=== PATIENT | female | born 1955 | race Caucasian/White ===

== ENCOUNTER 2017-09-17 04:41 | Emergency (ER) | payer OTHER ==
[~2017-09-17] VITALS: Ht 157.5 cm; Wt 80.0 kg
[2017-09-17 04:42] VITALS: BP 180/86; PULSE 68; RESP 16; TEMP 97.9; O2SAT 98
[2017-09-17] MEDS ORDERED: PANTOPRAZOLE SODIUM 40 MG VIAL IV PUSH ONE (05:30)
[2017-09-17] MEDS ORDERED: SODIUM CHLOR 0.9% 1000 ML INJ 1,000 ML IV ONE (05:30)
[2017-09-17] MEDS: ONDANSETRON HCL 4 MG/2 ML VIAL IV PUSH ONE ×2 (06:45→06:55)
[2017-09-17 06:56] LABS: ALT (GPT) 33 U/L (10-53); ANION GAP 9 MEQ/L (5-15); AST (GOT) 26 U/L (15-37); BICARBONATE 27.3 MEQ/L (21.0-32.0); BLOOD UREA NITROGEN 13 MG/DL (7-18); CHLORIDE 105 MEQ/L (98-107); GLOMERULAR FILTRATION RATE 70 ML/MIN (>89); POTASSIUM 3.4 MEQ/L (3.5-5.1); SODIUM (NA) 141 MEQ/L (136-145)
[2017-09-17 07:00] LABS: ALKALINE PHOSPHATASE 91 U/L (45-117); TOTAL BILIRUBIN ADULT 0.5 MG/DL (0.2-1.0)
[2017-09-17 07:01] VITALS: BP 128/73; PULSE 60; RESP 20; O2SAT 99
[2017-09-17 07:12] LABS: AUTOMATED NEUTROPHIL # 4.3 TH/MM3 (1.8-7.7); BASOPHIL # 0.1 TH/MM3 (0-0.2); BASOPHIL % 0.9 % (0.0-2.0); EOSINOPHIL # 0.1 TH/MM3 (0-0.4); EOSINOPHIL % 1.8 % (0.0-4.0); HEMATOCRIT 44.8 % (35.0-46.0); HEMO FLAGS DIFF FINAL; LYMPH % 17.3 % (9.0-44.0); MEAN CORPUSCULAR HEMOGLOBIN 31.4 PG (27.0-34.0); MEAN CORPUSCULAR HGB CONC 34.9 % (32.0-36.0); MONO % 7.6 % (0.0-8.0); NEUT % 72.4 % (16.0-70.0); PLATELET COUNT 159 TH/MM3 (150-450); RED BLOOD COUNT 4.97 MIL/MM3 (4.00-5.30); RED CELL DISTRIBUTION WIDTH 12.8 % (11.6-17.2); WHITE BLOOD COUNT 5.9 TH/MM3 (4.0-11.0)
--- NOTE | 2017-09-17 07:24 | PD ---
HPI Chief Complaint: Chest Pain Time Seen by Provider: 05:03 Travel History International Travel<30 days: No Contact w/Intl Traveler<30days: No Traveled to known affect area: No History of Present Illness HPI Patient is a 62-year-old female who is coming in with substernal epigastric pain started tonight Just [employer] while lying in bed . she was worried it could be cardiac in nature. She has no diabetes. No hypertension. No past medical history significant. Her mother's brother had a heart attack at the age of 49. Patient has never had a stress test . patient did not take anything for the pain. Patient did not try Tums or any antacid or aspirin. In the ER she looks comfortable lying there with a vague substernal epigastric pain. it does not radiate. PFSH Past Medical History Cancer: Yes (skin) Cardiovascular Problems: No Diabetes: No Endocrine: No Gastrointestinal Disorders: Yes (IBS) Genitourinary: No Hepatitis: No Hiatal Hernia: No Immune Disorder: No Musculoskeletal: No Neurologic: No Psychiatric: No Reproductive: No Respiratory: Yes (hx of sleep apnea) Thyroid Disease: No Past Surgical History Abdominal Surgery: Yes (INTESTINAL BLOCKAGE) AICD: No Cardiac Surgery: No Ear Surgery: No Endocrine Surgery: No Eye Surgery: No Genitourinary Surgery: Yes (hysterectomy) Gynecologic Surgery: Yes (c section) Joint Replacement: No Oral Surgery: Yes (T & A) Pacemaker: No Thoracic Surgery: No Tonsillectomy: Yes Other Surgery: Yes Social History Alcohol Use: Yes (RARE) Tobacco Use: No Substance Use: No Allergies-Medications (Allergen,Severity, Reaction): Coded Allergies: No Known Allergies (Unverified Adverse Reaction, Unknown, 09/17/17) Reported Meds & Prescriptions Reported Meds & Active Scripts Active Protonix (Pantoprazole Sodium) 40 Mg Tab 40 Mg PO DAILY Pepcid (Famotidine) 20 Mg Tab 20 Mg PO BID Review of Systems Except as stated in HPI: all other systems reviewed are Neg Cardiovascular: Positive: Chest Pain or Discomfort Gastrointestinal: Positive: Abdominal Pain Physical Exam Narrative GENERAL: SKIN: Warm and dry. HEAD: Atraumatic. Normocephalic. EYES: Pupils equal and round. No scleral icterus. No injection or drainage. ENT: No nasal bleeding or discharge. Mucous membranes pink and moist. NECK: Trachea midline. No JVD. CARDIOVASCULAR: Regular rate and rhythm. RESPIRATORY: No accessory muscle use. Clear to auscultation. Breath sounds equal bilaterally. GASTROINTESTINAL: Abdomen soft, + Epigastric-tender, nondistended. Hepatic and splenic margins not palpable. Reproducible pain with palpation of the epigastrium MUSCULOSKELETAL: Extremities without clubbing, cyanosis, or edema. No obvious deformities. NEUROLOGICAL: Awake and alert. No obvious cranial nerve deficits. Motor grossly within normal limits. Five out of 5 muscle strength in the arms and legs. Normal speech. PSYCHIATRIC: Appropriate mood and affect; insight and judgment normal. Data Data Last Documented VS Vital Signs Date Time Temp Pulse Resp B/P (MAP) Pulse Ox O2 Delivery O2 Flow Rate FiO2 09/17/17 07:47 09/17/17 07:01 60 20 99 Room Air 09/17/17 04:42 97.9 Orders Orders Pantoprazole Inj (Protonix Inj) (09/17/17 05:30) Ondansetron Inj (Zofran Inj) (09/17/17 05:30) Sodium Chlor 0.9% 1000 Ml Inj (Ns 1000 M (09/17/17 05:30) Complete Blood Count With Diff (09/17/17 05:40) Troponin I (09/17/17 05:40) Comprehensive Metabolic Panel (09/17/17 05:40) Lipase (09/17/17 05:40) Ed Discharge Order (09/17/17 07:24) Electrocardiogram (09/17/17 05:08) Labs Laboratory Tests Test 09/17/17 05:00 White Blood Count 5.9 TH/MM3 Red Blood Count 4.97 MIL/MM3 Hemoglobin 15.6 GM/DL Hematocrit 44.8 % Mean Corpuscular Volume 90.0 FL Mean Corpuscular Hemoglobin 31.4 PG Mean Corpuscular Hemoglobin Concent 34.9 % Red Cell Distribution Width 12.8 % Platelet Count 159 TH/MM3 Mean Platelet Volume 8.5 FL Neutrophils (%) (Auto) 72.4 % Lymphocytes (%) (Auto) 17.3 % Monocytes (%) (Auto) 7.6 % Eosinophils (%) (Auto) 1.8 % Basophils (%) (Auto) 0.9 % Neutrophils # (Auto) 4.3 TH/MM3 Lymphocytes # (Auto) 1.0 TH/MM3 Monocytes # (Auto) 0.4 TH/MM3 Eosinophils # (Auto) 0.1 TH/MM3 Basophils # (Auto) 0.1 TH/MM3 CBC Comment DIFF FINAL Differential Comment Blood Urea Nitrogen 13 MG/DL Creatinine 0.82 MG/DL Random Glucose 81 MG/DL Total Protein 7.6 GM/DL Albumin 4.1 GM/DL Calcium Level 9.5 MG/DL Alkaline Phosphatase 91 U/L Aspartate Amino Transf (AST/SGOT) 26 U/L Alanine Aminotransferase (ALT/SGPT) 33 U/L Total Bilirubin 0.5 MG/DL Sodium Level 141 MEQ/L Potassium Level 3.4 MEQ/L Chloride Level 105 MEQ/L Carbon Dioxide Level 27.3 MEQ/L Anion Gap 9 MEQ/L Estimat Glomerular Filtration Rate 70 ML/MIN Troponin I LESS THAN 0.02 NG/ML Lipase 228 U/L [facility] Medical Decision Making Medical Screen Exam Complete: Yes Emergency Medical Condition: Yes Differential Diagnosis GERD vs Cardiac ischemia, vs pulmonary , vs viral gastritis Narrative Course pt has complete relief of symptoms from Protonix and Zofran, feels a distinctive change , after meds , ekg NSR and Trop completely negative. I offer the option of staying for a repeat troponin and EKG 4 hrs from first or to follow up with her MD tomorrow for repeat labs and arrange an outpt stress test due to age and remote family Hx . pt agrees to follow up as she feels better and agrees with my working diagnosis of GERD Diagnosis Primary Impression: GERD (gastroesophageal reflux disease) Patient Instructions: Gastritis (ED), General Instructions Scripts Pantoprazole (Protonix) 40 Mg Tab 40 MG PO DAILY for Reflux, #30 TAB 0 Refills Prov: Bandar Palomo MD 09/17/17 Famotidine (Pepcid) 20 Mg Tab 20 MG PO BID, #30 TAB 0 Refills Prov: Bandar Palomo MD 09/17/17 Disposition: 01 DISCHARGE HOME Condition: Good Bandar Palomo MD Sep 17, 2017 07:23
[2017-09-17] MEDS ORDERED: FAMO1TAB37 PO (07:32)
[2017-09-17] MEDS ORDERED: PROT40TA PO (07:34)
--- NOTE | 2017-09-17 12:11 | EKG ---
Date Performed: 09/17/2017 Time Performed: 05:08:05 PTAGE: 62 years EKG: Sinus rhythm LOW QRS VOLTAGE IN PRECORDIAL LEADS BORDERLINE ECG NO PREVIOUS TRACING DOCTOR: Elio Alvares Interpretating Date/Time 09/17/2017 12:10:23
== END 2017-09-17 08:22 | disposition home or self-care (01) ==
LOC: NEPE 04:41
DX: K21.9 Gastro-esophageal reflux disease without esophagitis (principal); K58.9 Irritable bowel syndrome, unspecified; Z79.899 Other long term (current) drug therapy
CPT/HCPCS: 80053; 83690; 84484; 85025; 93005; 96374; 99284; C9113; J7030; J2405